=== PATIENT | male | born 1940 | race Caucasian/White ===

== ENCOUNTER 2017-02-21 21:46 | Emergency (ER) | payer MEDICARE, OTHER ==
[~2017-02-21 21:46] MED LIST: ACETAMINOPHEN325 MG PO; ACETAMINOPHEN500 MG PO; ASPERCREME 1141.7 GM TOP; ASPIRIN CHEWABL81 MG PO; DESENEX85 GM TOP; GLIPIZIDE10 MG PO; HCTZ25 MG PO; KLOR-CON M20 T20 MEQ PO; LACTULOSE10 G/15 ML PO; LASIX20 MG PO; MUCINEX1200 MG PO; NEURONTIN300 MG PO; NIFEREX150 MG PO; PREDNISONE 10MG10 MG PO; PREDNISONE PO; PRILOSEC20 MG PO; SPIRIVA 18MCG18 MCG INH; SYMBICORT 80-10.2 GM INH; TERAZOSIN HCL10 MG PO; VENTOLIN HFA8 GM INH; ZESTRIL5 MG PO; ZITHROMAX500 MG PO; ZOCOR10 MG PO; ZOLOFT100 MG PO; [UNRECOGNIZED DRUG - OTHER] TOP
[2017-02-21 22:54] LABS: BASOPHIL 0.2 % (0-2); EOSINOPHIL 1.5 % (0-7); HCT 36.9 % (42.0-52.0); HGB 11.6 g/dl (13.2-18.0); LYMPHOCYTE 14.1 % (15-48); MCH 29.1 pg (25.0-31.0); MCHC 31.4 g/dL (32.0-36.0); MCV 92.7 fL (78.0-100.0); MONOCYTE 9.2 % (0-12); PLT 365 K/uL (150-400); RBC 3.98 M/uL (4.70-6.00); RDW 15.5 % (11.5-14.0); WBC 10.1 K/uL (4.0-10.5)
[2017-02-21 22:59] LABS: INR 1.05 (0.9-1.2); PROTHROMBIN TIME 13.3 SECONDS (11.7-14.0)
[2017-02-21 23:09] LABS: ALBUMIN 3.8 g/dL (3.4-4.8); BILIRUBIN - TOTAL 0.2 mg/dL (0.1-1.0); CREATININE 0.6 mg/dL (0.7-1.2); GLOBULIN (CALCULATION) 3.2 g/dL (2.2-4.2); POTASSIUM 4.5 mmol/L (3.5-5.1)
[2017-02-21 23:45] LABS: BILIRUBIN NEGATIVE (NEGATIVE); BLOOD TRACE-INTACT Ery/uL (NEGATIVE); CLARITY HAZY (CLEAR); COLOR YELLOW (YELLOW); GLUCOSE (U) NORMAL (NORMAL); KETONE (U) NEGATIVE (NEGATIVE); LEUKOCYTES 1+ Leu/uL (NEGATIVE); NITRITE NEGATIVE (NEGATIVE); PROTEIN NEGATIVE (NEGATIVE); SPECIFIC GRAVITY 1.015 (1.001-1.030)
[2017-02-21 23:50] LABS: BACTERIA 4+
[2017-02-21 23:51] LABS: URINARY WBC 20-50
== END 2017-02-22 07:46 | disposition other institution (70) ==
LOC: FER 21:46
PROVIDERS: Emergency Medicine Emergency Medical Services
DX: A41.9 Sepsis, unspecified organism (principal); N39.0 Urinary tract infection, site not specified; I95.9 Hypotension, unspecified; R06.02 Shortness of breath; R09.02 Hypoxemia; K21.9 Gastro-esophageal reflux disease without esophagitis; I10 Essential (primary) hypertension; G30.9 Alzheimer's disease, unspecified; F02.80 Dementia in other diseases classified elsewhere, unspecified severity, without behavioral disturbance, psychotic disturbance, mood disturbance, and anxiety; Z88.0 Allergy status to penicillin; Z88.1 Allergy status to other antibiotic agents
CPT/HCPCS: 36415; 36600; 71010; 71275; 80053; 81001; 82803; 83605; 84484; 85025; 85610; 85730; 86403; 87040; 87070; 87076; 87077; 87088; 87186; 87205; 93005; 94640; 94760; J2543; J2930; Q9967